=== PATIENT | female | born 1975 | race Caucasian/White ===

== ENCOUNTER 2020-10-25 10:37 | Outpatient (CLI) | payer OTHER ==
--- NOTE | 2020-10-25 11:29 | SLEEP CARE CONSULTATION ---
Information from patient questionnaire entered by Desi Villar. I have reviewed and concur with the information entered by Desi Villar. This document represents the service I personally performed and the decisions made by me, Raine Cornejo ARNP. History of Present Illness Service Date and Time: 10/25/2020 1037 Reason for Visit: New patient Chief Complaint: reports: Unrefreshed sleep, Snoring, Excessive daytime sleepiness, Observed pauses in breathing, Frequent awakenings at night, Other (doctor recommended) Date of Onset: a few years Usual bedtime: 9 - 10 pm Time it takes to fall asleep: a couple of hours Snores at night: Yes Observed to quit breathing while asleep: Yes Sleeps alone due to snoring: No Number of times waking at night: 3-4 Reasons for waking at night: reports: Snoring, Pain, Bathroom, Other (noise, unknown reasons) Toss, Turn, or Twitch while sleeping: Yes Recalls having dreams: No Usually gets out of bed at: 6 - 8 am Feels refreshed in the morning: No Morning headache: Yes (resolves after ibuprofen or I push passed tired) Sleepy or fatigued during the day: Yes Ever fallen asleep while driving: No Takes day naps: Yes (on my days off) Dreams during day naps: No Prior sleep studies: No Additional HPI information: I had the pleasure of seeing KISHOR GARCIA today regarding the possibility of her having a sleep disorder. Her current complaints are observed pauses in breathing, snoring, unrefreshed sleep and gasping in her sleep. She has had trouble sleeping for many years. She was recently in the hospital and was told she stopped breathing and should see her PCP. Her and children have both told her she snores and has pauses in breathing. She has been told she gasps in her sleep and will startle herself awake at times. She does not wake up feeling rested in the morning. She wakes up 90% of time with a headache. She has difficulty getting to sleep, it will take her a couple of hours to get to sleep. She has taken sleep aides to go to sleep. She also has difficulty staying asleep. She wakes up 3-4 times, or more. She then has difficulty getting back to sleep after getting up. She will wake up soaking wet in the last couple months. She was recently diagnosed with hypothyroidism and is taking Levothyroxine daily. 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 Patient is and lives in [place]. Have you smoked in the past 12 months: No Alcohol use: Yes Alcohol amount and frequency: 1-3 drinks on special occasions 1-2 times a year Caffeine use: Yes Caffeine amount and frequency: 1-2 drinks occasionally 1-2 times a week Family History Family history of sleep disordered breathing: No Family Hx Sleep Apnea: Father: Snoring Allergies and Home Medications Drug allergies reviewed: Yes (NKDA) Home medication list reviewed: Yes Allergy and home medication list: Levothyroxine Omeprazole Ferosul Fiber chews Review of Systems Weight gain over past 5 years: 30 plus Cardiovascular: denies: high blood pressure Respiratory: reports: shortness of breath Gastrointestinal: reports: heartburn, diarrhea, abdominal pain Urinary: reports: urgency Neurological: reports: headaches Psychiatric: reports: anxiety, depression, claustrophobia Ear/Nose/Throat: reports: wisdom teeth removed. denies: tonsillectomy Endocrine: reports: thyroid disease, sluggishness, too hot or cold Musculoskeletal: reports: joint pain, neck pain, back pain, muscle pain or cramping Immunologic: reports: sneezing Physical Exam Blood Pressure: 127/86 Cuff size: wrist Heart Rate: 79 O2 Saturation: 98 Height: 5 ft 1 in Weight: 234 lb Body Mass Index: 44.1 BMI Classification: Morbidly Obese Neck circumference: 15.25 (inches) Mouth and throat: narrow oropharynx Soft palate: long Hard palate: normal Uvula visualization: 25% Mallampati Class III Tongue: enlarged in size with teeth parekh on lateral edges Tonsils: 1+ Neck: normal w/o lymphadenopathy or thyromegaly Heart: regular rate and rhythm Lungs: clear bilaterally Impression and Plan 1. Suspected Obstructive Sleep Apnea-Hypopnea Syndrome, as suggested by a histo ry of loud and irregular snoring, observed cessation of breath while asleep, morning headache, frequent awakening during the night, unrefreshed sleep, and excessive daytime sleepiness. Narrow oropharynx and obesity are common predisposing factors for obstructive sleep apnea-hypopnea syndrome. I recommend proceeding to polysomnography to confirm the diagnosis and to assess severity. If the patient has significant sleep disordered breathing, a manual CPAP titration study will also be performed to find the optimal treatment pressure. I informed the patient of what the sleep studies involve and after some discussion, obtained agreement to proceed. The pathophysiology of obstructive sleep apnea-hypopnea syndrome was discussed with the patient and health risks of cardiovascular and cerebrovascular disease if not treated. AAS brochure for obstructive sleep apnea-hypopnea syndrome given and reviewed. Risks of drowsy driving discussed in detail and patient advised to avoid long distance driving and to test puller at the first sign of drowsiness. Patient agreed to plan. * Schedule polysomnography +- manual CPAP titration study and return in 1-2 weeks after the study to discuss result and initiate therapy. * Avoid long distance driving or driving when feeling sleepy. * Avoid alcohol, sedative and muscle relaxant around bedtime. * Attempt to lose weight. * Review instructions provided by trained office staff on how to prepare for the sleep study. * Return for follow-up after sleep study completed. Counseling Topics: Weight loss health impact Visit Type: In Office Time Spent with Patient (minutes): 30 Provider Statement: I spent 100% of the Face to Face Visit with the patient with greater than 50% spent counseling the patient and coordination of care.
[2020-10-25 11:30] VITALS: BP 127/86
== END 2020-10-25 10:38 | disposition home or self-care (01) ==
LOC: SC 10:37
PROVIDERS: ATTEND Nurse Practitioner Family
DX: R06.83 Snoring (principal); R51.9 Headache, unspecified; G47.8 Other sleep disorders; G47.10 Hypersomnia, unspecified; E66.01 Morbid (severe) obesity due to excess calories; Z68.41 Body mass index [BMI] 40.0-44.9, adult
CPT/HCPCS: 99203; 99212

== ENCOUNTER 2020-11-02 12:39 | Outpatient (CLI) | payer OTHER | END 2020-11-02 12:40 | disposition home or self-care (01) | LOC: SC 12:39 | PROVIDERS: ATTEND Nurse Practitioner Family | DX: G47.10 Hypersomnia, unspecified (principal); R51.9 Headache, unspecified; R06.83 Snoring; G47.8 Other sleep disorders; E66.01 Morbid (severe) obesity due to excess calories; Z68.41 Body mass index [BMI] 40.0-44.9, adult | CPT/HCPCS: 95806 ==

== ENCOUNTER 2020-11-16 14:39 | Outpatient (CLI) | payer OTHER ==
[2020-11-16 15:08] VITALS: BP 117/74
--- NOTE | 2020-11-16 15:08 | SLEEP CARE CONSULTATION ---
Information from patient questionnaire entered by Christina Escamilla. I have reviewed and concur with the information entered by Christina Escamilla. This document represents the service I personally performed and the decisions made by , Raine Cornejo ARNP. History of Present Illness Service Date and Time: 11/16/2020 1439 Initial [place] Sleepiness Scale score: 13 (in 2020) Current [place] Sleepiness Scale score: 13 Additional HPI information: KISHOR GARCIA returns for follow up and results of the recently performed home sleep study. The patient was informed of the following findings: No significant sleep disordered breathing with an average AHI of 4.5 and darryl oxygen saturation of 85%. I explained the pathophysiology behind obstructive sleep apnea. Patient does not have sleep apnea and was advised how weight gain could increase the risk of developing sleep apnea in the future. I strongly encouraged the patient to lose weight. Patient does not have significant sleep disordered breathing but has elevated AHI in non-supine position so advised positional therapy. Patient has snoring. Snoring can be reduced by weight loss. Weight loss is best achieved with diet consult. Patient instructed to contact PCP for referral. Snoring can also be treated with an oral appliance from a dentist. Advised to check insurance coverage. In addition, an ENT evaluation can be do to see if other treatment is indicated. Patient was cautioned about risks of drowsy driving until sleepiness symptoms resolve. Sleep Study - Results Type of Sleep Study: Home sleep study Prior sleep studies: Yes Year and Where: 10/2020 [facility] Polysomnography/Home Sleep Study results: Physician Impression: The quality of the study is good. The length of the study is adequate (> 240 minutes). Please also see the tabulated and graphic data. 1. No significant sleep disordered breathing, with an AHI of 4.5/hr and darryl SaO2 of 85%. During the study, the patient had 2 apneas (2 obstructive, 0 central, 0 mixed) and 43 hypopneas. The longest episode lasted 81.0 seconds. The few respiratory events occurred independently of body position (supine AHI was 3.4 and non-supine, 5.07). 2. Hypoxemia (ICD-10 R09.02), mild, with the lowest oxygen saturation of 85 % and 8.9 minutes with SaO2 under 90%. Baseline oxygen saturation was normal (Average oxygen saturation was 93%). Allergies and Home Medications Home medication list reviewed: Yes (no changes) Review of Systems Review of systems same as previous: Yes (no changes) Physical Exam Blood Pressure: 117/74 Cuff size: wrist Heart Rate: 87 O2 Saturation: 95 Height: 5 ft 1 in Weight: 235 lb Body Mass Index: 44.4 BMI Classification: Morbidly Obese Impression and Plan 1. Hypoxemia, mild, with the lowest oxygen saturation of 85 % and 8.9 minutes with SaO2 under 90% noted in her HST. Her baseline oxygen saturation was normal with an average oxygen saturation of 93%. 2. Suspected Obstructive Sleep Apnea-Hypopnea Syndrome, as suggested by a history of loud and irregular snoring, observed cessation of breath while asleep, frequent awakening during the night, unrefreshed sleep, and excessive daytime sleepiness. Patient completed home sleep study which does show non- supine elevation above 5 AHI. She continues to exhibit symptoms consistent with possible obstructive sleep apnea. I would like to get an in lab PSG to verify results. I recommend proceeding to polysomnography to confirm the diagnosis and to assess severity. I obtained agreement to proceed. The pathophysiology of obstructive sleep apnea-hypopnea syndrome was discussed with the patient and health risks of cardiovascular and cerebrovascular disease if not treated. Risks of drowsy driving discussed in detail and patient advised to avoid long distance driving and to green chain puller at the first sign of drowsiness. Patient agreed to plan. * Schedule polysomnography +- manual CPAP titration study and return in 1-2 weeks after the study to discuss result and initiate therapy. * Avoid long distance driving or driving when feeling sleepy. * Avoid alcohol, sedative and muscle relaxant around bedtime. * Attempt to lose weight. * Review instructions provided by trained office staff on how to prepare for the sleep study. * Return for follow-up after sleep study completed. Counseling Topics: Weight loss health impact Visit Type: In Office Time Spent with Patient (minutes): 20 Provider Statement: I spent 100% of the Face to Face Visit with the patient with greater than 50% spent counseling the patient and coordination of care.
== END 2020-11-16 14:40 | disposition home or self-care (01) ==
LOC: SC 14:39
PROVIDERS: ATTEND Nurse Practitioner Family
DX: R09.02 Hypoxemia (principal); R06.83 Snoring; G47.10 Hypersomnia, unspecified; G47.8 Other sleep disorders; E66.01 Morbid (severe) obesity due to excess calories; Z68.41 Body mass index [BMI] 40.0-44.9, adult
CPT/HCPCS: 99212; 99213

== ENCOUNTER 2021-04-18 20:16 | Outpatient (CLI) | payer OTHER | END 2021-04-18 20:17 | disposition home or self-care (01) | LOC: SC 20:16 | PROVIDERS: ATTEND Nurse Practitioner Family | DX: G47.10 Hypersomnia, unspecified (principal); G47.8 Other sleep disorders; R06.81 Apnea, not elsewhere classified; R06.83 Snoring | CPT/HCPCS: 95810 ==

== ENCOUNTER 2021-05-02 09:50 | Outpatient (CLI) | payer OTHER ==
[2021-05-02 10:13] VITALS: BP 123/89
--- NOTE | 2021-05-02 10:13 | SLEEP CARE CONSULTATION ---
Information from patient questionnaire entered by Nubia Dacosta MA. I have reviewed and concur with the information entered by Nubia Dacosta MA. This document represents the service I personally performed and the decisions made by , Raine Cornejo ARNP. History of Present Illness Service Date and Time: 05/02/2021 0950 Initial [place] Sleepiness Scale score: 13 (in 2020) Current [place] Sleepiness Scale score: 10 (2021) Additional HPI information: KISHOR GARCIA returns for follow up and results of the recently performed polysomnography. The patient was informed of the following findings: No significant sleep dis ordered breathing with an average AHI of 4.9 and darryl oxygen saturation of 88%. Her non-supine AHI was 6.38. I explained the pathophysiology behind obstructive sleep apnea. Patient does not have sleep apnea and was advised how weight gain could increase the risk of developing sleep apnea in the future. I strongly encouraged the patient to lose weight. Patient does not have significant sleep disordered breathing but has elevated AHI in non-supine position so advised positional therapy. Methods to achieve positional management therapy were discussed; such as, positioning with pillows, wedge pillow behind her back or body pillow to keep her from sleeping non-supine. Patient has light to moderate snoring. Snoring can be reduced by weight loss. Weight loss is best achieved with diet consult. Patient instructed to contact PCP for referral. Snoring can also be treated with an oral appliance from a dentist. Advised to check insurance coverage. In addition, an ENT evaluation can be do to see if other treatment is indicated. Patient was cautioned about risks of drowsy driving until sleepiness symptoms resolve. Sleep Study - Results Type of Sleep Study: Polysomnography (f/u poly) Prior sleep studies: Yes Year and Where: 10/2020 [facility] Polysomnography/Home Sleep Study results: IMPRESSION: The quality of the study is good. The patient had normal sleep efficiency. The sleep architecture was normal as well. Respiratory monitoring showed no significant sleep disordered breathing (AHI = 4.9) or hypoxia (darryl oxygen saturation of 88%, and only < 1% to the total sleep time was spent with oxygen saturation below 90%). The respiratory events occurred mainly during REM sleep (supine AHI = 2.1; non-supine = 6.38). Snore was light to moderate in intensity. There was no significant periodic leg movement of sleep. Cardiac rhythm was normal sinus rhythm without significant arrhythmia. No abnormal behavior (parasomnia) observed during the night Allergies and Home Medications Known drug allergies: Yes (LATEX) Drug allergies reviewed: Yes Home medication list reviewed: Yes Allergy and home medication list: DORZOLAMIDE HCI TIMOLOT AND LATANOPROST SOLUTION Review of Systems Review of systems same as previous: No (Glaucoma) Physical Exam Vital signs obtained and entered by: Joan DACOSTA CMA AAMILES Blood Pressure: 123/89 (LEFT, PULSE 73, RESP 16, ) Heart Rate: 73 O2 Saturation: 98 (CLOTH MASK) Height: 5 ft 1 in Weight: 240 lb (WITH CLOTHES) Body Mass Index: 45.3 BMI Classification: Morbidly Obese Impression and Plan Snoring but no significant sleep disordered breathing. Patient advised that often weight loss will reduce snoring as well as apnea risk. She is going to have a gastric sleeve bariatric surgery to help her to lose weight. I also reviewed with her that an oral appliance can also be used for snoring. This would require a dental consultation. Patient cautioned not to use other online appliances as can cause bite issues. A list of accredited dentists in area and one local dentist who makes oral appliances is available in the office. Patient is advised to check if insurance will cover. An ENT consult can also be helpful to determine if any other treatment is an option. * Continue to try to lose weight * Avoid non-supine sleep exclusively because of elevated non-supine AHI * Return as needed for follow up. Counseling Topics: Sleeping position, Weight loss health impact Visit Type: In Office Time Spent with Patient (minutes): 20 Provider Statement: I spent 100% of the Face to Face Visit with the patient with greater than 50% spent counseling the patient and coordination of care.
== END 2021-05-02 09:51 | disposition home or self-care (01) ==
LOC: SC 09:50
PROVIDERS: ATTEND Nurse Practitioner Family
DX: G47.10 Hypersomnia, unspecified (principal); R06.81 Apnea, not elsewhere classified; E66.01 Morbid (severe) obesity due to excess calories; Z68.42 Body mass index [BMI] 45.0-49.9, adult
CPT/HCPCS: 99212; 99213

== ENCOUNTER 2023-04-08 07:27 | Outpatient (CLI) | payer OTHER ==
--- NOTE | 2023-04-09 09:03 | Mammography Report ---
BILATERAL DIGITAL SCREENING MAMMOGRAM 3D/2D: 04/08/2023 CLINICAL: Routine screening. Family history of breast cancer. Comparison is made to exam dated: 10/15/2021 mammogram - [facility]. Both breasts are heterogeneously dense, which may obscure small masses (category c / 51-75% glandular tissue). No significant masses, calcifications, or other findings are seen in either breast. There has been no significant interval change. IMPRESSION: NEGATIVE There is no mammographic evidence of malignancy. A 1 year screening mammogram is recommended. Based on the Tyrer Cuzick model (a risk assessment model) the patient's lifetime risk is 9.8% and her 10 year risk is 1.9%. According to the ACR, ACS, and NCCN guidelines, an annual breast MRI exam mary g with mammogram is recommended if the patient's lifetime risk is 20% or greater. This exam was interpreted at Station ID: [id number]. NOTE: For mammograms, a report in lay terms will be sent to the patient. Approximately 15% of breast malignancies will not be visualized mammographically. In the management of a palpable breast mass, a negative mammogram must not discourage biopsy of a clinically suspicious lesion. Electronically Signed By: Juwan crawford/christa:04/08/2023 16:52:45 letter sent: No_Letter ACR BI-RADS Category 1: Negative 3341F PARENCHYMAL PATTERN: (D) - The breast(s) demonstrate(s) heterogeneously dense fibroglandular domonique perry. BI-RADS CATEGORY: (1) - 1 Mammogram [id number] 1 year screening LATERALITY: (B)
== END 2023-04-08 07:28 | disposition home or self-care (01) ==
LOC: DI.S 07:27
DX: Z12.31 Encounter for screening mammogram for malignant neoplasm of breast (principal); R92.333 Mammographic heterogeneous density, bilateral breasts; Z80.3 Family history of malignant neoplasm of breast

== ENCOUNTER 2023-05-21 17:27 | Outpatient (CLI) | payer OTHER ==
--- NOTE | 2023-05-22 11:10 | XRAY Report ---
PROCEDURE: Hand 3+V RT INDICATIONS: TRAUMATIC RUPTURE OF RIGHT ULNAR COLLATERAL LIGAME TECHNIQUE: 4 views of the hand(s) acquired. COMPARISON: None. FINDINGS: Bones: No fractures or dislocations. No suspicious bony lesions. Soft tissues: No suspicious soft tissue calcifications or masses. IMPRESSION: No acute fracture or dislocation in right thumb. If clinically indicated, MRI of right thumb can be d one for further evaluation of internal derangement. Reviewed by: Viral Malone MD on 05/22/2023 11:08 AM PDT Approved by: Viral Malone MD on 05/22/2023 11:08 AM PDT Station ID: [id number]
== END 2023-05-21 17:28 | disposition home or self-care (01) ==
LOC: DI 17:27
PROVIDERS: ATTEND Physician Assistant Medical
DX: S53.31XA Traumatic rupture of right ulnar collateral ligament, initial encounter (principal)

== ENCOUNTER 2023-06-02 10:30 | Outpatient (CLI) | payer OTHER ==
--- NOTE | 2023-06-02 16:00 | XRAY Report ---
PROCEDURE: Finger(s) RT INDICATIONS: RIGHT THUMB PAIN TECHNIQUE: AP hand, 2 views of the first finger(s) acquired. COMPARISON: 05/21/2023 FINDINGS: Bones: No fractures or dislocations. No suspicious bony lesions. Soft tissues: No suspicious soft tissue calcifications or masses. IMPRESSION: No acute bony abnormality. MRI can be considered for further evaluation of internal derangement, if c linically indicated. Reviewed by: John Cohen MD on 06/02/2023 3:59 PM PDT Approved by: John Cohen MD on 06/02/2023 3:59 PM PDT Station ID: [id number]
== END 2023-06-02 23:59 | disposition home or self-care (01) ==
LOC: DI.WOS 10:30
PROVIDERS: ATTEND Orthopaedic Surgery
DX: S53.31XA Traumatic rupture of right ulnar collateral ligament, initial encounter (principal)